=== PATIENT | female | born 1975 | race Caucasian/White ===

== ENCOUNTER 2017-06-25 19:24 | Emergency (ER) | payer SELFPAY ==
[~2017-06-25] VITALS: Ht 165.1 cm; Wt 96.0 kg
[2017-06-25 19:24] VITALS: BP 136/66
[~2017-06-25 19:24] MED LIST: ACET325T21 PO; AZIT250T PO; CEFU250T PO; CITA20TA9 PO; DOXY200T2 PO; HYDR-2678 PO; IBUP600T16 PO; KETO15CR2 TP; NIAC500T8 PO; PRED5TAB PO; [UNRECOGNIZED DRUG - CODE] TP
[2017-06-25] MEDS ORDERED: CEPH-264 PO (20:08)
--- NOTE | 2017-06-25 20:09 | PHYS DOC ---
Past History Past Medical History: Depression Past Surgical History: Smoking: Greater than 1 pack/day Alcohol Use: Occasionally Drug Use: None Adult General Chief Complaint Chief Complaint: INSECT BITE HPI HPI Patient is a 42 year old F who presents with insect bite to her left mid anterior hinojosa. Patient states she was driving today and felt something bite her and her parent leg and she was able to squish the bug in her parent leg however when she stop driving she was unable to find exactly what bit her. This happened on Friday and ever since she's had increasing pain with redness to the anterior hinojosa. Patient denies any fevers. Patient denies any other symptoms. Review of Systems Review of Systems GEN: Denies fevers, chills, sweats HEENT: Denies blurred vision, sore throat CV: Denies chest pain RESP: Denies shortness of air, cough GI: Denies n/v/d NEURO: Denies confusion, dizziness MSK: Left leg pain All other systems were reviewed and found to be within normal limits, except as documented in this note. Allergies Allergies Allergies Uncoded Allergies Type Severity Reaction Last Updated Verified DISSOLVABLE STITCHES Allergy Unknown 01/11/14 Physical Exam Physical Exam GEN.: No apparent distress. Alert and oriented. HEENT: Head is normocephalic, atraumatic NECK: Supple. LUNGS: CTAB. HEART: RRR, S1, S2 present. Peripheral pulses intact ABDOMEN: Soft, nontender. Positive bowel sounds. EXTREMITIES: Without any cyanosis. NEUROLOGIC: Normal speech, normal tone PSYCHIATRIC: Normal affect, normal mood. SKIN: Insect bite to the left mid anterior hinojosa with a central area of necrosis and erythema around it consistent with an insect bite EKG EKG [] Radiology/Procedures Radiology/Procedures [] Course & Med Decision Making Course & Med Decision Making Pertinent Labs and Imaging studies reviewed. (See chart for details) MDM: After reviewing the chart, CC/HPI/PMH, physical exam, I do not believe the patient has a severe bacterial infection warranting further workup and/or admission at this time. I believe the patient has an insect bite to her left lower leg with possibly some surrounding cellulitis therefore offered the patient Keflex in which she will take and will follow-up with her PCP. Patient is stable for discharge. Additional verbal discharge instructions were provided to the patient and that if symptoms get worse or any new symptoms arise that are worrisome to the patient she is to return to the emergency room immediately [] Kirill Disclaimer Dragon Disclaimer This electronic medical record was generated, in whole or in part, using a voice recognition dictation system. Departure Departure: Impression: Primary Impression: Insect bite or sting Additional Impression: Cellulitis Disposition: HOME, SELF-CARE Condition: STABLE Referrals: PCP,NO (PCP) Patient Instructions: Spider Bite Additional Instructions: Please follow-up with your family doctor in the next one to 2 days return if symptoms increase Scripts Cephalexin (KEFLEX) 500 Mg Capsule 1 CAP PO TID for 7 Days, #21 CAP Prov: FAIZA THOMPSON DO 06/25/17 Problem Qualifiers FAIZA THOMPSON DO Jun 25, 2017 20:09
== END 2017-06-25 20:40 | disposition home or self-care (01) ==
LOC: ER 19:24
DX: S80.862A Insect bite (nonvenomous), left lower leg, initial encounter (principal); L03.116 Cellulitis of left lower limb; F32.9 Major depressive disorder, single episode, unspecified; F17.200 Nicotine dependence, unspecified, uncomplicated; Z88.8 Allergy status to other drugs, medicaments and biological substances; W57.XXXA Bitten or stung by nonvenomous insect and other nonvenomous arthropods, initial encounter; Y93.89 Activity, other specified; Y99.8 Other external cause status; Y92.89 Other specified places as the place of occurrence of the external cause
CPT/HCPCS: 99283